=== PATIENT | female | born 1940 | race Caucasian/White ===

== ENCOUNTER 2020-09-02 13:00 | Outpatient (CLI) | payer MEDICARE, SELFPAY ==
--- NOTE | ~2020-09-02 | XR_ITS ---
XR sacroiliac joints min 3V DATE: 09/02/2020 13:56 INDICATION: Lower back pain, primarily on the left TECHNIQUE: AP and bilateral oblique views COMPARISON: None FINDINGS: Osteopenia. Moderate degenerative disease at L4-5 and severe degenerative disease at L5-S1. The sacroiliac joints appear intact. The pubic symphysis is intact. Mild osteoarthritis of the hip tsering ints. IMPRESSION: Normal sacroiliac joints Reviewed, dictated and finalized at Location A. Reviewed, dictated and finalized at location A. IMPRESSION: Normal sacroiliac joints
--- NOTE | ~2020-09-02 | XR_ITS ---
XR lumbar spine 2-3V DATE: 09/02/2020 13:56 INDICATION: Low back pain, primarily on the left TECHNIQUE: AP, lateral, coned lateral lumbosacral views COMPARISON: 09/23/2010 lumbar spine FINDINGS: Diffuse osteopenia. Mild dextroscoliosis of the lumbar spine. Included lower thoracic and lumbar pedicles appear intact. There is mild degenerative disc disease at L1-2, L2-3 and L3-4. There is moderate degenerative disc disease and grade 1 anterolisthesis at L4-5. There is severe degenerative disc disease at L5-S1. No fracture or bone destruction is evident. The sacroiliac joints appear intact. IMPRESSION: Osteopenia Mild dextro scoliosis Multilevel degenerative disc disease, most pronounced at L4-5 and particularly L5-S1 Grade 1 anterolisthesis at L4-5 due to degenerative change at the apophyseal joints Reviewed, dictated and finalized at location A. IMPRESSION: Osteopenia Mild dextro scoliosis Multilevel degenerative disc disease, most pronounced at L4-5 and particularly L5-S1 Grade 1 anterolisthesis at L4-5 due to degenerative change at the apophyseal tsering ints
== END 2020-09-02 13:01 | disposition home or self-care (01) ==
PROVIDERS: PCP Family Medicine; Visit Provider Family Medicine
DX: M46.1 Sacroiliitis, not elsewhere classified (principal); G57.02 Lesion of sciatic nerve, left lower limb
CPT/HCPCS: 72100; 72202

== ENCOUNTER 2021-06-09 14:25 | Outpatient (CLI) | payer MEDICARE, SELFPAY ==
--- NOTE | ~2021-06-09 | CT_ITS ---
EXAMINATION: CT brain & sinus wo con INDICATION: Head injury COMPARISON: None TECHNIQUE: Standard unenhanced CT of the brain and sinuses. The dose-length product (DLP) was 681.00 mGy-cm. The mA was adjusted according to patient size. Iterative reconstruction technique was employe d. FINDINGS: CT brain: There is no intracranial hemorrhage, acute infarction, or abnormal mass lesion. The ventric les are normal. There is no abnormal mass effect or midline shift. The rodriguez-white matter differentiat ion is normal. The basal cisterns are patent. The orbits are normal. The paranasal sinuses, mastoids and calvarium are normal. CT sinuses: There is normal development and pneumatization of the paranasal sinuses. There is mild mu cosal thickening caudally in the maxillary sinuses. The frontal, sphenoid, and ethmoidal sinuses are clear. The bilateral ostiomeatal complexes are patent. Visualized soft tissues are unremarkable. IMPRESSION: 1. No acute intracranial abnormality. 2. Mild maxillary sinus disease. Reviewed, dictated and finalized at location B.
--- NOTE | ~2021-06-09 | CT_ITS ---
EXAMINATION: CT cervical spine wo con DATE: 06/09/2021 16:04 INDICATION: Head injury TECHNIQUE: Computed tomography (CT) of the cervical spine was performed without intravenous contrast. The dose-length product (DLP) was 681.00 mGy-cm. Automated exposure control and iterative reconstruc tion technique were employed. COMPARISON: None FINDINGS: There is no fracture. There are 2 mm of retrolisthesis of C5 on C6. There is severe loss of intervertebral disc space height at C6-7 and moderate loss of disc space height at C5-6. The odontoi d is intact. The prevertebral soft tissues are normal. Small degenerative osteophytes project from th e anterior endplates of multiple vertebral bodies. There is moderate multilevel facet and uncovertebr al joint osteoarthritis. Scarring is noted in the lung apices. IMPRESSION: 1. Mild cervical spondylosis without acute findings. Reviewed, dictated and finalized at location B.
[2021-06-09 15:01] LABS: Hematocrit 41.8 % (35.0-42.0); Hemoglobin 13.7 g/dL (11.7-13.8); Mean Corpuscular HGB Conc 32.8 g/dL (32.0-36.0); Mean Corpuscular Hemoglobin 30.5 pg (27.0-31.0); Mean Corpuscular Volume 93.1 fL (78.0-102.0); Mean Platelet Volume 12.2 fl (9.2-11.8); Platelet Count Result 186 K/mm3 (150-420); Red Blood Count 4.49 M/mm3 (4.20-5.40); Red Cell Distribution Width 12.3 % (11.6-14.4); White Blood Count 5.7 K/mm3 (4.8-10.8)
[2021-06-09 15:43] LABS: Alanine Aminotransferase 40 U/L (14-59); Albumin Level 3.8 g/dL (3.4-5.0); Alkaline Phosphatase 51 U/L (46-116); Anion Gap 7 mmol/L (8-16); Aspartate Amino Transferase 19 U/L (15-37); Bilirubin,Total 0.4 mg/dL (0.00-1.00); Blood Urea Nitrogen 15 mg/dL (7-18); Carbon Dioxide 28 mmol/L (21-32); Chloride 103 mmol/L (98-108); Estimated Glomerular Filt Rate > 60; Glucose 80 mg/dL (70-99); Osmolality Calculated 285 mOsm/kg (285-295); Sodium 138 mmol/L (136-145); Total Protein 7.4 g/dL (6.4-8.2)
== END 2021-06-09 14:26 | disposition home or self-care (01) ==
LOC: CHSIMG 14:29
PROVIDERS: PCP Family Medicine; Visit Provider Family Medicine
DX: R51.9 Headache, unspecified (principal); M54.2 Cervicalgia; M46.1 Sacroiliitis, not elsewhere classified; M81.0 Age-related osteoporosis without current pathological fracture
CPT/HCPCS: 36415; 70450; 70486; 72125; 80053; 85027

== ENCOUNTER 2021-06-12 13:16 | Outpatient (CLI) | payer MEDICARE, SELFPAY ==
--- NOTE | ~2021-06-12 | DEXA_ITS ---
Bone Density Report Name: YANDEL PIEDRA Age: 81 Sex: Female Ethnicity: White Date of : 1940 Indication: postmenopausal; screening for osteoporosis; parental hip fracture; height loss; prior fracture; hysterectomy; Referring Provider: Quinton Knox Study: Bone densitometry was performed. Exam Date: June 12, 2021 Accession number: [id number] Bone Density: Region BMD T-score Z-score Classification AP Spine(L1-L4) 0.694 -3.2 -0.6 Osteoporosis Femoral Neck (Left) 0.532 -2.9 -0.6 Osteoporosis Total Hip (Left) 0.608 -2.7 -0.7 Osteoporosis Femoral Neck (Right) 0.439 -3.7 -1.4 Osteoporosis Total Hip (Right) 0.597 -2.8 -0.8 Osteoporosis Femoral Neck Mean 0.486 -3.3 -1.0 Osteoporosis Total Hip Mean 0.602 -2.8 -0.8 Osteoporosis World Health Organization criteria for BMD impression classify patients as: Normal (T-score at or above -1.0), Osteopenia (T-score between -1.0 and -2.5), or Osteoporosis (T-score at or below -2.5). 10-year Fracture Risk: FRAX not reported because: Some T-score for Spine Total or Hip Total or Femoral Neck at or below -2.5 Treated for osteoporosis Clinical Information Provided by Patient: Has had a low trauma fracture Parent has had a hip fracture Is being treated for osteoporosis Has used the following medications: Fosamax (i.e. alendronate), Vitamin D Has the following medical conditions: Hysterectomy Patient maximum height was 64 Menopause Age: 52 No regular weight bearing exercise Drinks caffeinated beverages Onset of menses at age 15 Number of children 2 Impression: The patient has established osteoporosis, based on the Right Femoral Neck T-score and the existence of a prior fracture. The patient has risk factors, including: parental hip fracture, previous fracture. Discussion: It is important to ask patients whether they are taking their medications and to encourage continued and appropriate compliance with their osteoporosis therapies to reduce fracture risk. It is also important to review their risk factors and encourage appropriate calcium and vitamin D intakes, exercise, fall prevention and other lifestyle measures. Follow-Up: Consider a repeat BMD and Vertebral Fracture Assessment (VFA) exam in 2 years or sooner if medically necessary, to reassess this patient's status. Reported by: Dr. Jesse Jasso on 06/12/2021 1:43:00 PM. Reviewed, dictated and finalized at location A. [facility]
== END 2021-06-12 13:17 | disposition home or self-care (01) ==
LOC: CHSIMG 13:18
PROVIDERS: PCP Family Medicine; Visit Provider Family Medicine
DX: M81.0 Age-related osteoporosis without current pathological fracture (principal)
CPT/HCPCS: 77080

== ENCOUNTER 2021-11-09 08:27 | Emergency (ER) | payer MEDICARE, SELFPAY ==
[2021-11-09] VITALS (20 sets, daily range): BP systolic 117–140; BP diastolic 63–87; PULSE 96–109; RESP 18–20; TEMP 36.4–37.1; O2SAT 90–100
--- NOTE | ~2021-11-09 | XR_ITS ---
EXAMINATION: XR chest 1V portable DATE: 11/09/2021 10:21 INDICATION: Fever. TECHNIQUE: A single frontal view of the chest was obtained. COMPARISON: CT cervical spine 06/09/2021 FINDINGS: There is mild scarring at the lung apices. No pleural effusion or pneumothorax. The heart s ize is normal. There is a moderate-sized hiatal hernia. IMPRESSION: 1. Mild scarring at the lung apices. 2. Moderate-sized hiatal hernia. Reviewed, dictated and finalized at location A.
--- NOTE | ~2021-11-09 | CT_ITS ---
EXAMINATION: CT facial bones wo con DATE: 11/09/2021 10:20 INDICATION: Facial pain. Fever. TECHNIQUE: Computed tomography (CT) of the facial bones and maxillofacial region was performed withou t intravenous contrast. Automated exposure control and iterative reconstruction technique were employ ed. The dose-length product was 303.67 mGy-cm. COMPARISON: CT sinuses 06/09/2021 FINDINGS: The orbits are normal. There is leftward deviation of the nasal septum. There is mild mucos al thickening in the frontal recesses and ethmoid and maxillary sinuses. The sphenoid sinuses are conor ar. There is occlusion of the ostiomeatal units at the infundibula. There are patent secondary maxill sven ostia. There is moderate cervical spondylosis. There are many restorations of the teeth. IMPRESSION: 1. Mucosal thickening in the paranasal sinuses. Reviewed, dictated and finalized at location A.
--- NOTE | 2021-11-09 09:11 | ECG_ITS ---
Measurements Intervals [place] Rate: 102 P: 47 FL: 145 QRS: 47 QRSD: 90 T: 50 QT: 331 QTc: 431 Interpretive Statements SINUS TACHYCARDIA ABNORMAL RHYTHM ECG NO PREVIOUS ECG AVAILABLE FOR COMPARISON Electronically Signed On 11-09-2021 15:18:45 CDT by Carole Tenorio M.D.
[2021-11-09] MEDS: SODIUM CHLORIDE 0.9% IV 1,000 ML 999 ML IV CONT (09:47)
[2021-11-09] MEDS: MORPHINE SULFATE (*CRX) 2 MG/ML INJ IV PUSH (09:48)
[2021-11-09] MEDS: ONDANSETRON INJ 4 MG/2 ML VIAL IV PUSH (09:48)
--- NOTE | 2021-11-09 10:00 | PC.NURSE ---
Pt refused CT of brain, OK with CT of face and chest xray. Radiology aware.
[2021-11-09 10:07] LABS: Basophils Absolute Auto 0.04 K/mm3 (0.00-0.10); Basophils Percent Auto 0.5 % (0.0-1.0); Eosinophils Absolute Auto 0.02 K/mm3 (0.02-0.50); Eosinophils Percent Auto 0.3 % (1.0-6.0); Hematocrit 41.5 % (35.0-42.0); Hemoglobin 13.8 g/dL (11.7-13.8); Immature Granulocyte Absolute 0.02 K/mm3 (0.00-0.00); Immature Granulocyte Percent A 0.3 % (0.0-0.0); Lymphocytes Absolute Auto 0.43 K/mm3 (1.10-4.50); Lymphocytes Percent Auto 5.7 % (18.0-42.0); Mean Corpuscular HGB Conc 33.3 g/dL (32.0-36.0); Mean Corpuscular Hemoglobin 30.7 pg (27.0-31.0); Mean Corpuscular Volume 92.2 fL (78.0-102.0); Mean Platelet Volume 11.8 fl (9.2-11.8); Monocytes Absolute Auto 0.97 K/mm3 (0.10-0.90); Monocytes Percent Auto 12.8 % (2.0-11.0); Neutrophils Absolute Auto 6.1 K/mm3 (1.7-7.2); Neutrophils Percent Auto 80.4 % (50.0-70.0); Platelet Count Result 173 K/mm3 (150-420); Red Cell Distribution Width 12.2 % (11.6-14.4); White Blood Count 7.6 K/mm3 (4.8-10.8)
--- NOTE | 2021-11-09 10:11 | PC.NURSE ---
Pt off floor to radiology. MD aware of patient refusal for CT of brain
[2021-11-09 10:23] LABS: Alanine Aminotransferase 39 U/L (14-59); Albumin Level 3.9 g/dL (3.4-5.0); Alkaline Phosphatase 61 U/L (46-116); Anion Gap 7 mmol/L (8-16); Aspartate Amino Transferase 20 U/L (15-37); Bilirubin,Total 0.5 mg/dL (0.00-1.00); Blood Urea Nitrogen 13 mg/dL (7-18); Calcium 8.7 mg/dL (8.5-10.1); Carbon Dioxide 26 mmol/L (21-32); Chloride 101 mmol/L (98-108); Estimated CRCL calculation 43 ml/min; Estimated Glomerular Filt Rate > 60; Glucose 114 mg/dL (70-99); Osmolality Calculated 279 mOsm/kg (285-295); Potassium 3.9 mmol/L (3.5-5.1); Sodium 134 mmol/L (136-145); Total Protein 8.2 g/dL (6.4-8.2); Troponin I 9.3 ng/L (0.00-60.4)
[2021-11-09 10:24] LABS: Lactic Acid Reflex 1.2 mmol/L (0.4-2.0)
[2021-11-09 10:38] LABS: Strep Group A RT-PCR Negative (Negative)
--- NOTE | 2021-11-09 10:40 | ED.URI ---
HPI - URI/Sore Throat General Chief Complaint: Upper Respiratory Infection Stated Complaint: covid positive chills fever fatigue Time Seen by Provider: 11/09/21 08:31 Source: patient and RN notes reviewed Mode of arrival: ambulatory Limitations: no limitations History of Present Illness MD elicited complaint: fever, sore throat, nasal congestion and sinus pain Onset (ago): day(s) (1) Consistency: progressively worsening Severity: mild Pain scale (0-10): 7 Able to tolerate fluids by mouth: Yes Exacerbating factors: nothing Relieving factors: nothing Associated symptoms: fever, headache and sore throat Related Data Allergies Allergy/AdvReac Type Severity Reaction Status Date / Time strawberry Allergy Hives Verified 11/09/21 08:42 wine spirit Allergy Hives Verified 11/09/21 08:42 Review of Systems Review of Systems: All systems reviewed & are unremarkable except as noted in HPI and below Constitutional: Constitutional: Reports no additional constitutional complaints and Reports fever(s) Eyes: Eyes: Reports no additional eye complaints ENT: Reports system reviewed and no additional complaints, except as documented Cardiovascular: Cardiovascular: Reports no additional cardiovascular complaints Respiratory: Respiratory: Reports no additional respiratory complaints Gastrointestinal: Gastrointestinal: Reports no additional gastrointestinal complaints Genitourinary: Genitourinary: Reports no additional female genitourinary complaints Musculoskeletal: Musculoskeletal: Reports no additional musculoskeletal complaints Integumentary/Breasts: Skin/Breast: Reports system reviewed and no additional complaints, except as docu Neurologic: Reports system reviewed and no additional complaints, except as documented and Reports headache(s) Psychiatric: Psychiatric: Reports no additional psychiatric complaints Endocrine: Endocrine: Reports no additional endocrine complaints Hematologic/Lymphatic: Hematologic/Lymphatic: Reports no additional hematologic/lymphatic complaints Allergic/Immunologic: Allergic/Immunologic: Reports no additional allergic/immunologic complaints [facility] Past Medical History Medical History Osteoporosis Viral syndrome Surgical History Surgical History History of partial hysterectomy History of tonsillectomy Family History Family History Father , Age 87. Unknown cause of No problems noted. Mother , Age 97. Unknown cause of No problems noted. Social History Social History Tobacco type: cigarettes Smoking end date: 03/22/83 Exam Const: General: no acute distress Nutritional Appearance: well nourished Orientation/consciousness: patient oriented x3 Limitations: no limitations HENMT: Head: normal to inspection Ears: external ears normal, TM's normal bilaterally and EAC's normal General nose exam: Normal external nose present and Normal nares present Face and sinus: normal facial exam and sinuses nontender Mouth: Yes Normal oral and palatal mucosa present and Yes moist mucous membranes Teeth and gingiva: dentition normal Other: mild pharyngeal redness only Eyes: Conjunctivae: conjunctivae normal Pupils: Equal, round and reactive pupils present EOM: EOMs intact bilaterally Neck: Neck: normal visual inspection, no lymphadenopathy and no meningeal signs Chest: Chest palpation & inspection: normal inspection of the chest Resp: Effort & Inspection: normal respiratory effort Auscultation: clear to auscultation bilaterally Cardio: Rate: regular rate Rhythm: regular rhythm GI: GI Palp: Yes Soft to palpation and No Tenderness to palpation present (GI) Auscultation: normal bowel sounds : General: Yes bladder normal to p
[2021-11-09 10:44] LABS: Influenza A QL RT-PCR Negative (Negative); Influenza B QL RT-PCR Negative (Negative); SARS-CoV-2 RNA PCR Positive (Negative)
[2021-11-09 11:18] LABS: Add Urine Microscopic? YES; Bilirubin Urine Negative (Negative); Blood Urine 1+ (Negative); Color Urine Light Yellow (Yellow); Glucose Urine UA Negative (Negative); Ketones Urine Negative (Negative); Leukocyte Esterase Ur 1+ (Negative); Nitrate Urine Positive (Negative); Protein Urine Negative (Negative); Specific Grav Ur 1.015 (1.010-1.020); Urobilinogen Urine 0.2 mg/dL (0.2-1.0)
[2021-11-09 11:24] LABS: Appearance Urine Cloudy (Clear); Squamous Epithelial Cell Urine None seen /hpf (Few); WBC Clumps Urine Present /hpf
[2021-11-09 11:25] LABS: Bacteria Urine 4+ /hpf; Mucus Urine Few /lpf
[2021-11-09] MEDS: ACETAMINOPHEN 325 MG TABLET 650 MG PO (11:28)
== END 2021-11-09 11:43 | disposition home or self-care (01) ==
PROVIDERS: Emergency Provider Emergency Medicine; PCP Family Medicine
DX: B34.9 Viral infection, unspecified (principal); U07.1 COVID-19; M81.0 Age-related osteoporosis without current pathological fracture
CPT/HCPCS: 70486; 71045; 80053; 81001; 83605; 84484; 85025; 87502; 87651; 93005; 96361; 96374; 96375; 99284; A9270; C9803; J2270; J2405; J7030; U0003; U0005

== ENCOUNTER 2022-05-11 09:09 | Outpatient (CLI) | payer MEDICARE, SELFPAY ==
[2022-05-11 09:34] LABS: Hematocrit 43.9 % (35.0-42.0); Hemoglobin 14.5 g/dL (11.7-13.8); Mean Corpuscular Hemoglobin 30.9 pg (27.0-31.0); Mean Corpuscular Volume 93.6 fL (78.0-102.0); Mean Platelet Volume 12.3 fl (9.2-11.8); Platelet Count Result 182 K/mm3 (150-420); Red Blood Count 4.69 M/mm3 (4.20-5.40); Red Cell Distribution Width 12.2 % (11.6-14.4); White Blood Count 5.5 K/mm3 (4.8-10.8)
[2022-05-11 10:25] LABS: Alanine Aminotransferase 49 U/L (14-59); Albumin Level 3.8 g/dL (3.4-5.0); Alkaline Phosphatase 54 U/L (46-116); Anion Gap 7 mmol/L (8-16); Aspartate Amino Transferase 25 U/L (15-37); Bilirubin,Total 0.5 mg/dL (0.00-1.00); Blood Urea Nitrogen 14 mg/dL (7-18); Calcium 8.6 mg/dL (8.5-10.1); Carbon Dioxide 29 mmol/L (21-32); Chloride 104 mmol/L (98-108); Cholesterol 231 mg/dL (0-200); Estimated Glomerular Filt Rate > 60; Glucose 99 mg/dL (70-99); HDL Direct 61 mg/dL (40-60); LDL Cholesterol Calculated 128 mg/dL (<130); Osmolality Calculated 290 mOsm/kg (285-295); Potassium 4.3 mmol/L (3.5-5.1); Sodium 140 mmol/L (136-145); Total Protein 7.9 g/dL (6.4-8.2); Triglycerides 210 mg/dL (0-150)
[2022-05-11 10:26] LABS: Free T4 Free Thyroxine Reflex 0.93 ng/dL (0.76-1.46)
== END 2022-05-11 09:10 | disposition home or self-care (01) ==
LOC: CHSLAB 09:11
PROVIDERS: PCP Family Medicine; Visit Provider Family Medicine
DX: E11.9 Type 2 diabetes mellitus without complications (principal); U07.1 COVID-19; M81.0 Age-related osteoporosis without current pathological fracture
CPT/HCPCS: 36415; 80053; 80061; 84439; 84443; 85027

== ENCOUNTER 2022-08-12 14:10 | Outpatient (CLI) | payer MEDICARE, SELFPAY ==
[2022-08-12 15:13] LABS: Thyroid Stimulating Hormone 1.21 uIU/mL (0.36-3.74)
== END 2022-08-12 14:11 | disposition home or self-care (01) ==
LOC: CHSLAB 14:13
PROVIDERS: PCP Family Medicine; Visit Provider Family Medicine
DX: E03.9 Hypothyroidism, unspecified (principal)
CPT/HCPCS: 36415; 84443

== ENCOUNTER 2023-01-05 11:19 | Outpatient (CLI) | payer MEDICARE, SELFPAY ==
[2023-01-05 11:32] LABS: Basophils Absolute Auto 0.05 K/mm3 (0.00-0.10); Basophils Percent Auto 0.6 % (0.0-1.0); Eosinophils Absolute Auto 0.05 K/mm3 (0.02-0.50); Eosinophils Percent Auto 0.6 % (1.0-6.0); Hematocrit 41.4 % (35.0-42.0); Hemoglobin 13.6 g/dL (11.7-13.8); Immature Granulocyte Absolute 0.04 K/mm3 (0.00-0.00); Immature Granulocyte Percent A 0.5 % (0.0-0.0); Lymphocytes Absolute Auto 1.23 K/mm3 (1.10-4.50); Lymphocytes Percent Auto 15.6 % (18.0-42.0); Mean Corpuscular HGB Conc 32.9 g/dL (32.0-36.0); Mean Corpuscular Volume 91.4 fL (78.0-102.0); Mean Platelet Volume 11.8 fl (9.2-11.8); Monocytes Absolute Auto 0.79 K/mm3 (0.10-0.90); Neutrophils Absolute Auto 5.7 K/mm3 (1.7-7.2); Neutrophils Percent Auto 72.7 % (50.0-70.0); Platelet Count Result 205 K/mm3 (150-420); Red Blood Count 4.53 M/mm3 (4.20-5.40); Red Cell Distribution Width 12.5 % (11.6-14.4); White Blood Count 7.9 K/mm3 (4.8-10.8)
[2023-01-05 12:29] LABS: Alanine Aminotransferase 52 U/L (14-59); Albumin Level 3.7 g/dL (3.4-5.0); Alkaline Phosphatase 52 U/L (46-116); Anion Gap 10 mmol/L (8-16); Aspartate Amino Transferase 25 U/L (15-37); Bilirubin,Total 0.5 mg/dL (0.00-1.00); Blood Urea Nitrogen 14 mg/dL (7-18); Calcium 8.7 mg/dL (8.5-10.1); Carbon Dioxide 26 mmol/L (21-32); Chloride 104 mmol/L (98-108); Estimated Glomerular Filt Rate > 60; Glucose 94 mg/dL (70-99); Osmolality Calculated 290 mOsm/kg (285-295); Potassium 4.4 mmol/L (3.5-5.1); Sodium 140 mmol/L (136-145); Total Protein 7.1 g/dL (6.4-8.2)
[2023-01-05 12:37] LABS: Thyroid Stimulating Hormone Reflex 1.01 u/IU/mL (0.36-3.74)
== END 2023-01-05 11:20 | disposition home or self-care (01) ==
LOC: CHSLAB 11:21
PROVIDERS: PCP Family Medicine; Visit Provider Family Medicine
DX: E11.9 Type 2 diabetes mellitus without complications (principal); B34.9 Viral infection, unspecified
CPT/HCPCS: 36415; 80053; 84443; 85025

== ENCOUNTER 2023-10-14 14:53 | Outpatient (NON) | payer MEDICARE, SELFPAY | END 2023-10-14 14:54 | disposition home or self-care (01) | PROVIDERS: Visit Provider Family Medicine | DX: L82.1 Other seborrheic keratosis (principal) | CPT/HCPCS: 88305 ==

== ENCOUNTER 2023-11-24 08:29 | Outpatient (CLI) | payer MEDICARE, SELFPAY ==
[2023-11-24 08:45] LABS: Basophils Absolute Auto 0.06 K/mm3 (0.00-0.10); Basophils Percent Auto 0.9 % (0.0-1.0); Eosinophils Absolute Auto 0.19 K/mm3 (0.02-0.50); Hematocrit 43.3 % (35.0-42.0); Hemoglobin 14.3 g/dL (11.7-13.8); Immature Granulocyte Absolute 0.01 K/mm3 (0.00-0.00); Immature Granulocyte Percent A 0.2 % (0.0-0.0); Lymphocytes Absolute Auto 1.72 K/mm3 (1.10-4.50); Lymphocytes Percent Auto 27.1 % (18.0-42.0); Mean Corpuscular Hemoglobin 30.4 pg (27.0-31.0); Mean Corpuscular Volume 92.1 fL (78.0-102.0); Monocytes Absolute Auto 0.55 K/mm3 (0.10-0.90); Monocytes Percent Auto 8.7 % (2.0-11.0); Neutrophils Absolute Auto 3.82 K/mm3 (1.70-7.20); Neutrophils Percent Auto 60.1 % (50.0-70.0); Platelet Count Result 178 K/mm3 (150-420); Red Cell Distribution Width 11.9 % (11.6-14.4); White Blood Count 6.4 K/mm3 (4.8-10.8)
[2023-11-26 10:58] LABS: Alanine Aminotransferase 17 U/L (6-35); Albumin Level 4.5 g/dL (3.5-5.1); Alkaline Phosphatase 54 U/L (38-126); Anion Gap 8 mmol/L (4-12); Aspartate Amino Transferase 23 U/L (14-36); Bilirubin,Total 0.4 mg/dL (0.2-1.3); Blood Urea Nitrogen 14 mg/dL (7-17); Calcium 9.2 mg/dL (8.4-10.2); Carbon Dioxide 30 mmol/L (22-30); Chloride 101 mmol/L (98-107); Cholesterol 206 mg/dL (0-200); Estimated Glomerular Filt Rate > 60; Glucose 95 mg/dL (65-110); HDL Direct 63 mg/dL; LDL Cholesterol Calculated 92 mg/dL (<130); Osmolality Calculated 288 mOsm/kg (285-295); Potassium 4.4 mmol/L (3.4-5.0); Sodium 139 mmol/L (137-145); Triglycerides 255 mg/dL (<150)
[2023-11-26 12:19] LABS: Hemoglobin A1C 5.8 % (<5.7)
== END 2023-11-24 08:30 | disposition home or self-care (01) ==
PROVIDERS: PCP Family Medicine; Visit Provider Nurse Practitioner Family
DX: Z13.1 Encounter for screening for diabetes mellitus (principal); E78.5 Hyperlipidemia, unspecified
CPT/HCPCS: 36415; 80053; 80061; 83036; 84443; 85025

== ENCOUNTER 2023-12-14 12:51 | Outpatient (CLI) | payer MEDICARE, SELFPAY ==
--- NOTE | ~2023-12-14 | DEXA_ITS ---
Bone Density Report Name: YANDEL PIEDRA Age: 83 Sex: Female Ethnicity: White Date of : 1940 Indication: postmenopausal osteoporosis; monitoring treatment; parental hip fracture; prior fracture; hysterectomy; Referring Provider: CYRIL MUNROE Study: Bone densitometry was performed. Exam Date: December 14, 2023 Accession number: [id number] Bone Density: Region BMD T-score Z-score Classification AP Spine(L1-L4) 0.754 -2.7 0.1 Osteoporosis Femoral Neck (Left) 0.534 -2.8 -0.5 Osteoporosis Total Hip (Left) 0.694 -2.0 0.1 Osteopenia Femoral Neck (Right) 0.488 -3.2 -0.9 Osteoporosis Total Hip (Right) 0.616 -2.7 -0.5 Osteoporosis Femoral Neck Mean 0.511 -3.0 -0.7 Osteoporosis Total Hip Mean 0.655 -2.4 -0.2 Osteopenia World Health Organization criteria for BMD impression classify patients as: Normal (T-score at or above -1.0), Osteopenia (T-score between -1.0 and -2.5), or Osteoporosis (T-score at or below -2.5). 10-year Fracture Risk: FRAX not reported because: Some T-score for Spine Total or Hip Total or Femoral Neck at or below -2.5 Treated for osteoporosis Previous Exams: Region Exam Age BMD T-score BMD Change BMD Change Date g/cm2 vs Baseline vs Previous AP Spine (L1-L4) 12/14/2023 83 0.754 -2.7 0.060 (8.6%)* 0.060 (8.6%)* 06/12/2021 81 0.694 -3.2 Total Hip(Left) 12/14/2023 83 0.694 -2.0 0.085 (14.0%)* 0.085 (14.0%)* 06/12/2021 81 0.608 -2.7 Total Hip(Right) 12/14/2023 83 0.616 -2.7 0.019 (3.2%) 0.019 (3.2%) 06/12/2021 81 0.597 -2.8 *Denotes significance at 95% confidence level, LSC for AP Spine = 0.022 g/cm2, LSC for Total Hip = 0.027 g/cm2 Clinical Information Provided by Patient: Has had a low trauma fracture Parent has had a hip fracture Is being treated for osteoporosis Has used the following medications: Fosamax (i.e. alendronate), Vitamin D Has the following medical conditions: Hysterectomy Patient maximum height was 64.5 Menopause Age: 52 No regular weight bearing exercise Drinks caffeinated beverages Onset of menses at age 15 Number of children 2 Impression: The patient has established osteoporosis, based on the Right Femoral Neck T-score and the existence of a prior fracture. The patient has risk factors, including: parental hip fracture, previous fracture. No significant bone loss was observed. Discussion: PATIENT UNDER TREATMENT WITH NO SIGNIFICANT BMD LOSS
== END 2023-12-14 12:52 | disposition home or self-care (01) ==
PROVIDERS: PCP Family Medicine; Visit Provider Nurse Practitioner Family
DX: Z78.0 Asymptomatic menopausal state (principal); M81.0 Age-related osteoporosis without current pathological fracture; M85.89 Other specified disorders of bone density and structure, multiple sites
CPT/HCPCS: 77080

== ENCOUNTER 2024-10-10 10:37 | Outpatient (CLI) | payer MEDICARE, SELFPAY ==
[2024-10-10 11:03] LABS: Hematocrit 45.5 % (35.0-42.0); Hemoglobin 14.7 g/dL (11.7-13.8); Mean Corpuscular HGB Conc 32.3 g/dL (32-36); Mean Corpuscular Hemoglobin 29.9 pg (27.0-31.0); Mean Corpuscular Volume 92.7 fL (78.0-102.0); Platelet Count Result 170 K/mm3 (150-420); Red Blood Count 4.91 M/mm3 (4.20-5.40); White Blood Count 5.9 K/mm3 (4.8-10.8)
[2024-10-10 11:18] LABS: Alanine Aminotransferase 18 U/L (6-35); Albumin Level 4.7 g/dL (3.5-5.1); Alkaline Phosphatase 66 U/L (38-126); Anion Gap 7 mmol/L (4-12); Aspartate Amino Transferase 29 U/L (14-36); Bilirubin,Total 0.9 mg/dL (0.2-1.3); Blood Urea Nitrogen 16 mg/dL (7-17); Calcium 9.5 mg/dL (8.4-10.2); Carbon Dioxide 28 mmol/L (22-30); Chloride 104 mmol/L (98-107); Estimated Glomerular Filt Rate > 60; Glucose 99 mg/dL (65-110); Magnesium 2.3 mg/dL (1.6-2.3); Osmolality Calculated 289 mOsm/kg (285-295); Potassium 4.8 mmol/L (3.4-5.0); Sodium 139 mmol/L (137-145); Total Protein 8.4 g/dL (6.3-8.2)
[2024-10-10 11:34] LABS: Free T4 Free Thyroxine 1.53 ng/dL (0.78-2.19)
[2024-10-10 11:47] LABS: Thyroid Stimulating Hormone 2.090 uIU/mL (0.465-4.680)
[2024-10-11 13:08] LABS: Albumin 4.0 g/dL (2.9-4.4); Alpha-1-Globulin 0.2 g/dL (0.0-0.4); Alpha-2-Globulin 1.0 g/dL (0.4-1.0); Gamma Globulin 1.1 g/dL (0.4-1.8)
== END 2024-10-10 10:38 | disposition home or self-care (01) ==
PROVIDERS: PCP Family Medicine; Visit Provider Internal Medicine
DX: D64.9 Anemia, unspecified (principal); M81.0 Age-related osteoporosis without current pathological fracture; E03.9 Hypothyroidism, unspecified
CPT/HCPCS: 36415; 80053; 82306; 83735; 83970; 84100; 84165; 84439; 84443; 85027

== ENCOUNTER 2024-10-12 10:44 | Outpatient (CLI) | payer MEDICARE, SELFPAY ==
[2024-10-12 11:40] LABS: Creatinine 24 Hour Urine 0.70 g/24 hr (0.60-1.80); Total Volume 24 Hour Urine 2300 ml
[2024-10-13 10:08] LABS: Calcium, Urine 10.9 mg/dL (Not Estab.)
[2024-10-16 15:09] LABS: Albumin, U 34.9 % (.); Alpha-1-Globulin, U 1.5 % (.); Alpha-2-Globulin, U 9.6 % (.); Beta Globulin, U 26.7 % (.); Gamma Globulin, U 27.3 % (.)
== END 2024-10-12 10:45 | disposition home or self-care (01) ==
PROVIDERS: PCP Family Medicine; Visit Provider Internal Medicine
DX: M81.0 Age-related osteoporosis without current pathological fracture (principal)
CPT/HCPCS: 81050; 82340; 82570; 84156; 84166

== ENCOUNTER 2024-12-25 09:55 | Outpatient (CLI) | payer MEDICARE, SELFPAY ==
[2024-12-25 10:00] VITALS: BMI 19.3
[2024-12-25 10:11] VITALS: BP 139/70; PULSE 88; RESP 16; TEMP 36.5; O2SAT 98
[2024-12-25] MEDS: ZOLEDRONIC ACID 5 MG/100 ML 100 ML 400 MG IVPB (10:15)
[2024-12-25 10:43] VITALS: BP 136/77; PULSE 72; RESP 16; TEMP 36.4; O2SAT 98
--- NOTE | 2024-12-25 10:44 | PC.NURSE ---
Patient tolerated Reclast infusion well. See MAR/patient care notes.
== END 2024-12-25 09:56 | disposition home or self-care (01) ==
PROVIDERS: PCP Family Medicine; Visit Provider Internal Medicine
DX: M81.0 Age-related osteoporosis without current pathological fracture (principal)
CPT/HCPCS: 96374; J3489

== ENCOUNTER 2024-12-26 14:28 | Outpatient (CLI) | payer MEDICARE, SELFPAY ==
--- NOTE | ~2024-12-26 | XR_ITS ---
EXAMINATION: XR shoulder RT min 2V, 12/26/2024 14:30 CDT HISTORY: S43.109A - Unspecified dislocation of unspecified acromio... COMPARISON: No comparisons available. Findings: No acute fracture or malalignment. Moderate degenerative changes Soft tissues unremarkable. Impression: No acute fracture or malalignment. Reviewed, dictated and finalized at location P. Impression: No acute fracture or malalignment.
== END 2024-12-26 14:29 | disposition home or self-care (01) ==
LOC: CHSIMG 14:29
PROVIDERS: PCP Family Medicine; Visit Provider Family Medicine
DX: S43.101A Unspecified dislocation of right acromioclavicular joint, initial encounter (principal)
CPT/HCPCS: 73030

== ENCOUNTER 2025-01-11 15:44 | Outpatient (CLI) | payer MEDICARE, SELFPAY ==
--- NOTE | ~2025-01-11 | MR_ITS ---
EXAMINATION: MR shoulder RT wo con DATE: 01/11/2025 16:45 INDICATION: Right shoulder pain and limited range of motion TECHNIQUE: Magnetic resonance imaging (MRI) of the right shoulder was performed without intravenous contrast. Sequences included axial PD-weighted FS FSE, coronal oblique PD-weighted FS FSE, coronal oblique T2-weighted FS FSE, sagittal PD-weighted FS FSE, and sagittal T1-weighted SE. COMPARISON: None. FINDINGS: Coracoacromial arch: The acromion undersurface is flat in morphology (type I). Small subacromial spurs extending from anteriorly to posteriorly. The coracoacromial ligament is normal. Mild acromioclavicular osteoarthritis. Rotator cuff: Mild supraspinatus and infraspinatus tendinopathy. There is a small full- thickness tear along the superior facet footplate of the supraspinatus tendon which measures 1.5 cm AP and 2 2.2 cm medial to lateral. There is a small tear margin T1 hyperintense heterotopic ossicle along the retracted tear margin which can be seen on prior radiographs and suggests a tear is chronic. Mild subscapularis tendinopathy without tear. The teres minor tendon is normal. Normal rotator cuff muscle bulk and signal. Biceps tendon, glenoid labrum and glenohumeral cartilage: Long head of the biceps tendon is normal. Glenoid labrum is normal. There is mild partial-thickness cartilage loss with smooth chondral surface along the inferomedial aspect of the humeral head. There is shallow chondral ulceration without degenerative subchondral changes along the anterosuperior aspect of the humeral head. Glenoid cartilage remains normal. Fluid: Moderate-sized glenohumeral joint effusion with distention of the axillary and deep subscapular recesses. Fluid extends through the full-thickness rotator cuff tear communicating with a small amount of fluid within the subacromial/subdeltoid bursa. No loose osteochondral bodies. Bones: Bone alignment is normal. No fracture or pathologic marrow replacing process. Mild likely degenerative cystic change at the posterior aspect of the greater tuberosity. IMPRESSION: 1. Small full-thickness tear of the anterior facet footplate of the supraspinatus tendon. 2. Mild right acromioclavicular and glenohumeral osteoarthritis with likely reactive moderate sized glenohumeral joint effusion. Reviewed, dictated and finalized at location A. IMPRESSION: 1. Small full-thickness tear of the anterior facet footplate of the supraspinat us tendon. 2. Mild right acromioclavicular and glenohumeral osteoarthritis with likely jeronimo ctive moderate sized glenohumeral joint effusion.
== END 2025-01-11 15:45 | disposition home or self-care (01) ==
LOC: CHSIMG 15:45
PROVIDERS: PCP Family Medicine; Visit Provider Family Medicine
DX: S46.811A Strain of other muscles, fascia and tendons at shoulder and upper arm level, right arm, initial encounter (principal); S43.109A Unspecified dislocation of unspecified acromioclavicular joint, initial encounter; M19.011 Primary osteoarthritis, right shoulder; M25.411 Effusion, right shoulder
CPT/HCPCS: 73221